=== PATIENT | female | born 1965 | race Caucasian/White ===

== ENCOUNTER 2018-11-20 14:43 | Emergency (ER) | payer OTHER ==
--- NOTE | 2018-11-20 15:00 | ER Document Report ---
ED Medical Screen (RME) - General Chief Complaint: Abdominal Pain Stated Complaint: ABDOMINAL PAIN Time Seen by Provider: 11/20/18 14:58 Primary Care Provider: DARLING SEAMAN MD [Primary Care Provider] - Follow up as needed TRAVEL OUTSIDE OF THE [place] IN LAST 30 DAYS: No - HPI Notes: 11/20/18 14:59 Patient is a 53-year-old female with a history of hypertension and appendectomy who presents complaining of left lower quadrant abdominal pain does not radiate and has been present for 3 days. Patient states that the pain started worsening this morning. She has associated nausea without vomiting. She is having normal bowel movements with the last one this morning. She is urinating normally. No other vaginal discharge, odor, or bleeding. Denies drug allergies. Patient has never had a colonoscopy. Denies BURKS, fever, neck pain, URI, CP, SOB, dysuria, back pain, or rash. I have treated and performed a rapid initial assessment of this patient. A comprehensive ED assessment and evaluation of the patient, analysis of test results and completion of medical decision making process will be conducted by additional ED providers. PHYSICAL EXAMINATION: GENERAL: Well-appearing, well-nourished and in no acute distress. A&Ox4. Answers questions appropriately. LUNGS: Breath sounds clear to auscultation bilaterally and equal. No wheezes rales or rhonchi. HEART: Regular rate and rhythm without murmurs, rubs, gallops. ABDOMEN: Soft, nondistended abdomen. No guarding, no rebound. Normal bowel sounds present. No CVA tenderness bilaterally. + tenderness LLQ (cannot elicit thorough abd exam w/o bed, however). - Related Data Allergies/Adverse Reactions: No Known Allergies Allergy (Verified 11/20/18 14:47) Physical Exam - Vital signs Vitals: Temp Pulse Resp BP Pulse Ox 98.3 F 74 18 171/85 H 98 11/20/18 14:50 11/20/18 14:50 11/20/18 14:50 11/20/18 14:50 11/20/18 14:50 Course - Vital Signs Vital signs: Temp Pulse Resp BP Pulse Ox 98.3 F 74 18 171/85 H 98 11/20/18 14:50 11/20/18 14:50 11/20/18 14:50 11/20/18 14:50 11/20/18 14:50 Doctor's Discharge - Discharge Referrals: DARLING SEAMAN MD [Primary Care Provider] - Follow up as needed
[2018-11-20 15:31] LABS: ABSOLUTE BASOPHILS # (AUTO) 0.1 10^3/uL (0.0-0.2); ABSOLUTE EOSINOPHILS # (AUTO) 0.3 10^3/uL (0.0-0.6); ABSOLUTE LYMPHOCYTES (AUTO) 2.6 10^3/uL (0.5-4.7); ABSOLUTE MONOCYTES (AUTO) 0.7 10^3/uL (0.1-1.4); ABSOLUTE NEUT (AUTO) 6.2 10^3/uL (1.7-8.2); BASOPHILS % (AUTO) 0.8 % (0-2); EOSINOPHILS % (AUTO) 2.8 % (0-6); HEMATOCRIT 40.2 % (36.0-47.0); HEMOGLOBIN 13.6 g/dL (12.0-15.5); LYMPHOCYTES % (AUTO) 26.2 % (13-45); MEAN CORPUSCULAR HEMOGLOBIN 30.6 pg (27.0-33.4); MEAN CORPUSCULAR HGB CONC 33.7 g/dL (32.0-36.0); MEAN CORPUSCULAR VOLUME 91 fl (80-97); MONOCYTES % (AUTO) 7.5 % (3-13); PLATELET COUNT 292 10^3/uL (150-450); RED BLOOD COUNT 4.42 10^6/uL (3.72-5.28); RED CELL DISTRIBUTION WIDTH 13.4 % (11.5-14.0); SEGMENTED NEUTROPHILS % (AUTO) 62.7 % (42-78); TOTAL CELLS COUNTED % (AUTO) 100 %; WHITE BLOOD COUNT 9.9 10^3/uL (4.0-10.5)
[2018-11-20 15:35] LABS: APPEARANCE,URINE CLEAR; BILIRUBIN,URINE NEGATIVE (NEGATIVE); COLOR,URINE STRAW; GLUCOSE, URINE NEGATIVE (NEGATIVE); KETONES,URINE NEGATIVE (NEGATIVE); LEUKOCYTE ESTERASE,URINE NEGATIVE (NEGATIVE); NITRITE,URINE NEGATIVE (NEGATIVE); PROTEIN,URINE NEGATIVE (NEGATIVE); URINE SPECIFIC GRAVITY 1.004; UROBILINOGEN,URINE NEGATIVE mg/dL (<2.0)
[2018-11-20 15:48] LABS: ALANINE AMINOTRANSFERASE 27 U/L (9-52); ALBUMIN 4.2 g/dL (3.5-5.0); ALKALINE PHOSPHATASE 99 U/L (38-126); ANION GAP 8 (5-19); ASPARTATE AMINO TRANSFERASE 20 U/L (14-36); BILIRUBIN,DIRECT 0.3 mg/dL (0.0-0.4); BILIRUBIN,TOTAL 0.7 mg/dL (0.2-1.3); BLOOD UREA NITROGEN 13 mg/dL (7-20); CALCIUM 9.6 mg/dL (8.4-10.2); CARBON DIOXIDE 29 mmol/L (22-30); CHLORIDE 104 mmol/L (98-107); GLUCOSE 90 mg/dL (75-110); LIPASE 154.1 U/L (23-300); POTASSIUM 3.7 mmol/L (3.6-5.0); SODIUM 141.2 mmol/L (137-145); TOTAL PROTEIN 6.9 g/dL (6.3-8.2)
--- NOTE | 2018-11-20 16:29 | RADIOLOGY REPORT (SQ) ---
EXAM DESCRIPTION: CT ABD/PELVIS WITH IV ONLY COMPLETED DATE/TIME: 11/20/2018 4:08 pm REASON FOR STUDY: LLQ pain COMPARISON: None. TECHNIQUE: CT scan of the abdomen and pelvis performed using helical scanning technique with dynamic intravenous contrast injection. No oral contrast. Images reviewed with lung, soft tissue, and bone windows. Reconstructed coronal and sagittal MPR images reviewed. Delayed images for evaluation of the urinary system also acquired. All images stored on PACS. All CT scanners at this facility use dose modulation, iterative reconstruction, and/or weight based d osing when appropriate to reduce radiation dose to as low as reasonably achievable (ALARA). [facility]: Dose Right [facility]: CareDose [facility]: Dose Right [facility]: Teradose 4D [facility]: [employer] CONTRAST TYPE AND DOSE: contrast/concentration: Isovue 350.00 mg/ml; Total Contrast Delivered: 100.0 ml; Total Saline Delivered: 72.0 ml RENAL FUNCTION: Creatinine - 0.5 BUN=13 RADIATION DOSE: CT Rad equipment meets quality standard of care and radiation dose reduction techniq ues were employed. CTDIvol: 20.6 - 21.1 mGy. DLP: 2197 mGy-cm.. LIMITATIONS: None. FINDINGS: LOWER CHEST: Small pleural based 2-3 mm nodule in the left lower lobe, axial image 10, se humble 4. LIVER: Normal size. No masses. No dilated ducts. The hepatic and portal veins are patent. SPLEEN: Normal size. No focal lesions. PANCREAS: No masses. No significant calcifications. No adjacent inflammation or peripancreatic fluid collections. Pancreatic duct not dilated. GALLBLADDER: No identified stones by CT criteria. No inflammatory changes to suggest cholecystitis. ADRENAL GLANDS: No significant masses or asymmetry. RIGHT KIDNEY AND URETER: An 11 mm nonobstructing calculus in the lower pole of the kidney. Too small to characterize hypoattenuated lesion. Extrarenal pelvis on the right, normal anatomic variant. LEFT KIDNEY AND URETER: No solid masses. No significant calcifications. No hydronephrosis or hydr oureter. AORTA AND VESSELS: No aneurysm. No dissection. Renal arteries, SMA, celiac without stenosis. RETROPERITONEUM: No retroperitoneal adenopathy, hemorrhage or masses. BOWEL AND PERITONEAL CAVITY: A small focal area of haziness and stranding in the left paracolonic gu tter, mid-lower quadrant of the abdomen, axial image 47, series 3 and coronal image 36, series 601. Considerations for this finding includes segmental omental infarction. No free fluid. No evidence o f abscess. APPENDIX: Prior appendectomy. PELVIS: No mass. No free fluid. Normal bladder. ABDOMINAL WALL: Small fat containing periumbilical hernia. BONES: No significant or acute findings. OTHER: Small hiatal hernia. IMPRESSION: 1. A small focal area of haziness and stranding in the left paracolonic gutter common m id-lower quadrant of the abdomen. Considerations for this finding includes segmental omental infarct ion. 2. Nonobstructing right renal calculus. 3. Small fat containing periumbilical hernia. 4. Prior appendectomy. 5. Additional findings as above. TECHNICAL DOCUMENTATION: JOB ID: [id number] Quality ID # [id number]: Final reports with documentation of one or more dose reduction techniques (e.g., Au tomated exposure control, adjustment of the mA and/or kV according to patient size, use of iterative reconstruction technique) 2010 [employer]- All Rights Reserved Reading location - IP/workstation name: [email or web address]
[2018-11-20 17:46] VITALS: BP 143/91
--- NOTE | 2018-11-20 19:00 | ER Document Report ---
Entered by URI NAIDU SCRIBE 11/20/18 1718 Acting as scribe for:STAN VAN DO ED General - General Chief Complaint: Abdominal Pain Stated Complaint: ABDOMINAL PAIN Time Seen by Provider: 11/20/18 14:58 Primary Care Provider: DARLING SEAMAN MD [Primary Care Provider] - Follow up as needed ANUP GOLDBERG MD [ACTIVE STAFF] - Follow up as needed Mode of Arrival: Ambulatory Information source: Patient Notes: Patient is a 53 year old female presenting to the emergency department complaining of LLQ abdominal pain with associated nausea onset 4 days ago. Patient states she initially attributed the pain to gas or muscle strain but s tates the pain slightly worsened this morning. She states presented to urgent care who sent her to the ED for further evaluation. She also complains of decreased appetite. She denies any fevers, vomiting, blood in stool, recent earaches, rhinorrhea, shortness of breath, chest pain or numbness or tingling sensations. Patient's last bowel movement was today. TRAVEL OUTSIDE OF THE [place] IN LAST 30 DAYS: No - Related Data Allergies/Adverse Reactions: No Known Allergies Allergy (Verified 11/20/18 14:47) Past Medical History - General Information source: Patient - Social History Smoking Status: Never Smoker Chew tobacco use (# tins/day): No Frequency of alcohol use: None Drug Abuse: None Lives with: Family Family History: Reviewed & Not Pertinent Patient has suicidal ideation: No Patient has homicidal ideation: No - Past Medical History Cardiac Medical History: Reports: Hx Hypertension Past Surgical History: Reports: Hx Appendectomy Review of Systems - Review of Systems Constitutional: No symptoms reported EENT: No symptoms reported Cardiovascular: No symptoms reported Respiratory: No symptoms reported Gastrointestinal: See HPI, Abdominal pain, Nausea, Poor appetite Genitourinary: No symptoms reported Female Genitourinary: No symptoms reported Musculoskeletal: No symptoms reported Skin: No symptoms reported Hematologic/Lymphatic: No symptoms reported Neurological/Psychological: No symptoms reported -: Yes All other systems reviewed and negative Physical Exam - Vital signs Vitals: Temp Pulse Resp BP Pulse Ox 98.3 F 74 18 171/85 H 98 11/20/18 14:50 11/20/18 14:50 11/20/18 14:50 11/20/18 14:50 11/20/18 14:50 - Notes Notes: GENERAL: Alert, interacts well. No acute distress. HEAD: Normocephalic, atraumatic. EYES: Pupils equal, round, and reactive to light. Extraocular movements intact. ENT: Oral mucosa moist, tongue midline. NECK: Full range of motion. Supple. Trachea midline. LUNGS: Clear to auscultation bilaterally, no wheezes, rales, or rhonchi. No respiratory distress. HEART: Regular rate and rhythm. No murmurs, gallops, or rubs. ABDOMEN: Soft, LLQ tenderness to palpation. Non-distended. Bowel sounds present in all 4 quadrants. No guarding, rigidity, or rebound. EXTREMITIES: Moves all 4 extremities spontaneously. No edema. NEUROLOGICAL: Alert and oriented x3. Normal speech. PSYCH: Normal affect, normal mood. SKIN: Warm, dry, normal turgor. No rashes or lesions noted. Course - Re-evaluation Re-evalutation: 11/20/18 17:24 CBC unremarkable, CMP unremarkable, lipase normal, urinalysis shows small blood but no signs of infection, CT scan of the abdomen pelvis shows a small amount of pericolic haziness paracolonic gutter on the mid lower quadrant of the abdomen on the left, consideration includes segmental omental infarction. While the patient's abdomen is tender it is not acutely surgical, there is no rigidity or rebounding. I did discuss this CAT scan finding with Dr. Goldberg who recommends anti-inflammatories for pain control discharge to home. - Vital Signs Vital signs: Temp Pulse Resp BP Pulse Ox 98.1 F 75 16 143/91 H 99 11/20/18 17:44 11/20/18 17:44 11/20/18 17:44 11/20/18 17:44 11/20/18 17:44 - Laboratory Result Diagrams: 11/20/18 15:11 11/20/18 15:11 Laboratory results interpreted by me: 11/20/18 15:11 Urine Blood SMALL H Discharge - Discharge Clinical Impression: Omental infarction Condition: Stable Disposition: HOME, SELF-CARE Additional Instructions: You have an omental infarction. This is a piece of fat within your abdomen that has due to lack of blood flow. It can be quite painful but does not usually need surgery. If your pain worsens, you develop fevers or you develop any new or concerning symptoms please return to the emergency department. You may take ibuprofen 800 mg every 8 hours as needed for pain. You may also use the [place] which is a combination of hydrocodone and acetaminophen to help control breakthrough pain over the next 48 hours. Prescriptions: Hydrocodone/Acetaminophen [[place] 5-325 Tablet] 1 each PO Q4HP PRN #10 tablet PRN Reason: Forms: Return to Work Referrals: DARLING SEAMAN MD [Primary Care Provider] - Follow up as needed ANUP GOLDBERG MD [ACTIVE STAFF] - Follow up as needed I personally performed the services described in the documentation, reviewed and edited the documentation which was dictated to the scribe in my presence, and it accurately records my words and actions.
== END 2018-11-20 17:44 | disposition home or self-care (01) ==
LOC: ER 14:43
DX: K55.069 Acute infarction of intestine, part and extent unspecified (principal); R10.32 Left lower quadrant pain; R11.0 Nausea; I10 Essential (primary) hypertension
CPT/HCPCS: 36415; 74177; 80053; 81001; 83690; 85025; 99284